=== PATIENT | male | born 1990 ===

== ENCOUNTER → 2021-11-18 | Outpatient (REF) | payer OTHER ==
[2021-11-18 14:06] LABS: SEMEN APPEARANCE OPAQUE (OPAQUE); SEMEN VISCOSITY LIQUID (LIQUID); SEMEN VOLUME 4.7 ml (2.0-5.0); SEMEN pH 8.5 (7.0-8.0)
[2021-11-18 14:07] LABS: SPERM CONCENTRATION 28.7 M/ml (>=15.0); WBC CONCENTRATION >1 M/ml (<=1 M/ml)
== END ==
LOC: M LAB REF 12:59
PROVIDERS: ATTEND Registered Nurse
DX: N46.9 Male infertility, unspecified (principal)